=== PATIENT | male | born 1960 | race Caucasian/White ===

== ENCOUNTER 2021-06-06 14:24 | Emergency (ER) | payer MEDICAID, OTHER ==
[~2021-06-06] VITALS: Ht 185.4 cm; Wt 86.2 kg
[2021-06-06 14:29] VITALS: BP 143/88
[2021-06-06] MEDS ORDERED: NAPR-54 PO (17:12)
[2021-06-06 17:20] VITALS: BP 143/88
--- NOTE | 2021-06-06 17:20 | NUR ---
Patient discharged with v/s stable. Written and verbal after care instructions given and explained. Patient alert, oriented and verbalized understanding of instructions. Ambulatory with steady gait. All questions addressed prior to discharge. ID band removed. Patient advised to follow up with PMD. Rx of naproxen (sent) given. Patient educated on indication of medication including possible reaction and side effects. Opportunity to ask questions provided and answered.
--- NOTE | 2021-06-06 17:21 | NUR ---
pt requested for friend to pick me up [phone]
--- NOTE | 2021-06-06 17:23 | NUR ---
contacted matias (friend) states she will pick him up
== END 2021-06-06 17:20 | disposition home or self-care (01) ==
LOC: MED 14:24
DX: M54.6 Pain in thoracic spine (principal); Z79.899 Other long term (current) drug therapy
CPT/HCPCS: 72072; 93005; 99283